=== PATIENT | male | born 1955 | race Caucasian/White ===

== ENCOUNTER 2017-11-04 12:04 | Emergency (ER) | payer MEDICAID ==
[~2017-11-04] VITALS: Ht 167.6 cm; Wt 78.9 kg
[2017-11-04 12:19] VITALS: Ht 167.6 cm; Wt 78.9 kg
[2017-11-04 15:47] VITALS: BP 117/70
== END 2017-11-04 16:21 | disposition home or self-care (01) ==
LOC: ED 12:04
DX: R10.32 Left lower quadrant pain (principal); R10.31 Right lower quadrant pain; I86.1 Scrotal varices; N50.819 Testicular pain, unspecified; E11.9 Type 2 diabetes mellitus without complications
CPT/HCPCS: 82962; Q0092